=== PATIENT | female | born 1960 | race Caucasian/White ===

== ENCOUNTER → 2020-02-24 13:17 | Outpatient (CLI) | payer BC, SELFPAY ==
--- NOTE | ~2020-02-24 | MM_ITS ---
EXAMINATION: MM screening rosales BI w fallon HISTORY: Screening mammogram, family history of breast cancer in her mother. TECHNIQUE: Craniocaudal and mediolateral oblique 3-D tomosynthesis images were obtained and synthetic 2-D images were generated. CAD analysis was submitted and interpreted. COMPARISON: 10/14/2014, 09/28/2011, 09/04/2010 BREAST PARENCHYMAL COMPOSITION: The breasts are heterogeneously dense, which may obscure small masses . FINDINGS: There is no evidence of suspicious mass, calcification, or architectural distortion to sugg est malignancy in either breast. There has been no suspicious interval change. IMPRESSION: 1. No mammographic evidence of malignancy. 2. Recommend routine screening mammography in one year. BI-RADS Category 1: Negative Reviewed, dictated and finalized at location A. ENT ASSEMBLER
== END ==
DX: Z12.31 Encounter for screening mammogram for malignant neoplasm of breast (principal)
CPT/HCPCS: 77063; 77067

== ENCOUNTER → 2023-04-25 14:24 | Outpatient (CLI) | payer MEDICARE, SELFPAY ==
--- NOTE | ~2023-04-25 | MM_ITS ---
EXAMINATION: MM screening rosales BI w fallon HISTORY: Screening mammogram, family history of breast cancer in her mother. TECHNIQUE: Craniocaudal and mediolateral oblique 3-D tomosynthesis images were obtained and synthetic 2-D images were generated. CAD analysis was submitted and interpreted. COMPARISON: 02/24/2020, 10/14/2014, 09/28/2011 BREAST PARENCHYMAL COMPOSITION: The breasts are heterogeneously dense, which may obscure small masses . FINDINGS: No suspicious mass, calcification, or architectural distortion are identified in either beth ast to suggest malignancy. There has been no suspicious interval change. IMPRESSION: 1. No mammographic evidence of malignancy. 2. Recommend routine screening mammography in one year. BI-RADS Category 1: Negative Reviewed, dictated and finalized at location A. LIFT DRIVER
== END ==
DX: Z12.31 Encounter for screening mammogram for malignant neoplasm of breast (principal)
CPT/HCPCS: 77063; 77067

== ENCOUNTER 2024-08-20 19:19 | Emergency (ER) | payer MEDICARE, SELFPAY ==
--- NOTE | 2024-08-20 19:21 | ED_ITS ---
HPI - Extremity Injury (Lower) General Chief Complaint: Extremity Injury, Lower Stated Complaint: right ankle painful, turning black Time Seen by Provider: 08/20/24 19:29 Source: patient, RN notes reviewed and old records reviewed Mode of arrival: ambulatory Limitations: no limitations History of Present Illness HPI Narrative: 63-year-old female presents to the [facility] with a painful lateral ankle that is turning colors. Symptoms started when she woke up this morning Patient concern for a spider bite and osteomyelitis Onset (ago): hour(s) Related Data Home Medications ?Medication ?Instructions ?Recorded ?Confirmed ?Last Taken ?Type alprazolam 2 mg tablet mg 08/20/24 Unknown History amitriptyline 100 mg tablet mg 08/20/24 Unknown History estradiol 1 mg tablet mg 08/20/24 Unknown History galcanezumab-gnlm 120 mg/mL mg subcut 08/20/24 Unknown History subcutaneous pen injector (Emgality Pen) morphine 60 mg tablet,extended mg PO 08/20/24 Unknown History release oxycodone 30 mg tablet mg 08/20/24 Unknown History pantoprazole 40 mg tablet,delayed mg PO 08/20/24 Unknown History release tizanidine 4 mg tablet mg 08/20/24 Unknown History ubrogepant 100 mg tablet (Ubrelvy) mg 08/20/24 Unknown History valacyclovir 500 mg tablet mg 08/20/24 Unknown History zolpidem 12.5 mg tablet,extended mg PO 08/20/24 Unknown History release,multiphase Allergies Allergy/AdvReac Type Severity Reaction Status Date / Time pregabalin (From Lyrica) Allergy Severe Swelling Verified 08/20/24 19:41 of Lip/Tongue/Throat aspirin Allergy Unknown Unknown Verified 08/20/24 19:41 duloxetine (From Cymbalta) Allergy Unknown Unknown Verified 08/20/24 19:41 indomethacin (From Indocin) Allergy Unknown Unknown Verified 08/20/24 19:41 Review of Systems Review of Systems: All systems reviewed & are unremarkable except as noted in HPI and below Constitutional: Constitutional: Reports no additional constitutional complaints ENT: Reports system reviewed and no additional complaints, except as documented Cardiovascular: Cardiovascular: Reports no additional cardiovascular complaints, Denies chest pain and Denies dyspnea Respiratory: Respiratory: Reports no additional respiratory complaints, Denies chest congestion, Denies cough and Denies dyspnea Musculoskeletal: Musculoskeletal: Reports no additional musculoskeletal complaints Integumentary/Breasts: Skin/Breast: Reports as per [facility] Comments At the time of my signature, I reviewed and agree with the nursing past medical, surgical, social, and family history. There is no relevant family history pertinent to the patient complaint. Exam Const: General: cooperative, no acute distress, well developed, alert, anxious, ill appearing chronically, uncomfortable and well nourished Nutritional Appearance: well nourished Orientation/consciousness: patient oriented x3 Limitations: no limitations HENMT: Head: normal to inspection Eyes: General: appearance normal, both eyes and all related structures Alignment and Position: alignment normal Neck: Neck: normal visual inspection, full ROM, no lymphadenopathy and no meningeal signs Chest: Chest palpation & inspection: normal inspection of the chest Resp: Effort & Inspection: normal respiratory effort and able to speak in complete sentences Cardio: Rate: regular rate Skin: General skin exam: normal color and no rashes or lesions noted Other: Right lateral ankle darkened area most likely contusion 1 and half by 1 cm. No fluctuance, no increased warmth. Mild pink in color in surrounding tissue 2x 2.5 cm. Tender to palpation. Serous fluid noted, collected sent for culture Neuro: General: patient oriented x3, gait normal, moves all extremities and no meningeal signs Cognition (Neuro): normal cognition Speech: normal speech Gait exam (Neuro): Normal gait present Extrem: General: normal to inspection, full ROM, capillary refill normal and normal gait Psych: Appearance: grossly normal and well kempt Mental Status: mental status grossly normal Speech and movement: Normal speech and movement present and Clear speech present Affect: normal affect Attitude: cooperative Course Course Level of Care: Express Care Visit Vital Signs Vital signs: Vital Signs Temperature 98.6 F 08/20/24 19:31 Pulse Rate 91 08/20/24 19:31 Respiratory Rate 14 08/20/24 19:31 Blood Pressure 141/64 H 08/20/24 19:31 Pulse Oximetry 99 08/20/24 19:31 Oxygen Delivery Room Air 08/20/24 19:31 Temperature 98.6 F 08/20/24 19:31 Pulse Rate 91 08/20/24 19:31 Respiratory Rate 14 08/20/24 19:31 Blood Pressure 141/64 H 08/20/24 19:31 Pulse Oximetry 99 08/20/24 19:31 Oxygen Delivery Room Air 08/20/24 19:31 Reviewed MDM - Extremity Injury (Lower) MDM Narrative Medical decision making narrative: Patient sitting in exam room. Patient is nontoxic, vitals are stable. Patient presents with discoloration to the right ankle, culture collected for the clear fluid. Concern for spider bite, beginning cellulitis versus contusion, hematoma. Covered with antibiotic. Patient has home pain medication. Patient appropriate for outpatient treatment with close follow-up discussed with patient and signs and symptoms proceed to the emergency room which both verbalized understanding Discharge instructions reviewed with patient, as well as provided in writing per nursing staff. The instructions also include specific and strict return/GO TO THE ER as well as f/u information. All questions have been answered, and the patient deny any further questions with discharge and discharge plan. Some parts of this dictation were generated by voice recognition software and may contain typographical and/or grammatical inaccuracies. Differential Diagnosis Differential diagnosis: Likely ankle sprain and strain and other (Cellulitis, insect bite edema) Critical Care Time Critical Care Time Critical Care Time: No Discharge Plan Discharge Clinical Impression: Ankle wound Patient Disposition: Home Condition: Stable Instructions: Antibiotic Form, Acute Wounds (ED) Additional Instructions: Wash area twice a day. Pat dry. Take antibiotic as prescribed Follow-up with primary care provider For worsening symptoms go directly to the emergency room Patient Language: Armenian Prescriptions: New sulfamethoxazole-trimethoprim [Bactrim DS] 800-160 mg tablet 1 tablet PO Q12H Qty: 14 0RF No Action tizanidine 4 mg tablet valacyclovir 500 mg tablet estradiol 1 mg tablet morphine 60 mg tablet extended release PO pantoprazole 40 mg tablet,delayed release (DR/EC) PO alprazolam 2 mg tablet oxycodone 30 mg tablet amitriptyline 100 mg tablet zolpidem 12.5 mg tablet,ext release multiphase PO Emgality Pen 120 mg/mL pen injector SUBCUT Ubrelvy 100 mg tablet Follow-up/Referrals: Bryan,José Miguel Connors MD [Primary Care Provider] - 1 Week (express care follow up ) Time of Disposition: 19:44
[2024-08-20 19:31] VITALS: BP 141/64; PULSE 91; RESP 14; TEMP 37; O2SAT 99
== END 2024-08-20 19:59 | disposition home or self-care (01) ==
PROVIDERS: Emergency Provider Nurse Practitioner; PCP Family Medicine
DX: S91.001A Unspecified open wound, right ankle, initial encounter (principal); X58.XXXA Exposure to other specified factors, initial encounter; K21.9 Gastro-esophageal reflux disease without esophagitis
CPT/HCPCS: 87070; 87075; 87205; 99213; G0463